=== PATIENT | male | born 1995 | race Caucasian/White ===

== ENCOUNTER 2023-05-04 10:46 | Emergency (ER) | payer BC, SELFPAY ==
[2023-05-04 10:49] VITALS: BP 152/100; PULSE 99; RESP 18; TEMP 36.7; O2SAT 100
[2023-05-04 11:26] LABS: Basophils Percent Auto 0.1 % (0.2-1.2); Eosinophils Absolute Auto 0.1 K/mm3 (0-0.3); Eosinophils Percent Auto 1.6 % (0-4.4); Hematocrit 47.4 % (42.0-52.0); Hemoglobin 17.1 g/dL (14.0-18.0); Immature Granulocyte Absolute 0.02 K/mm3 (0.00-0.031); Immature Granulocyte Percent A 0.3 % (0-0.5); Lymphocytes Absolute Auto 2.46 K/mm3 (0.9-3.2); Lymphocytes Percent Auto 34.8 % (18.3-44.2); Mean Corpuscular HGB Conc 36.1 g/dl (32-36); Mean Corpuscular Hemoglobin 33.1 pg (26-34); Mean Corpuscular Volume 91.9 fl (80-100); Mean Platelet Volume 8.6 fl (7.4-10.4); Monocytes Absolute Auto 0.4 K/mm3 (0.1-0.6); Neutrophils Absolute Auto 4.1 K/mm3 (1.3-6.7); Neutrophils Percent Auto 58.2 % (45.5-73.1); Platelet Count Result 256 k/mm3 (150-375); Red Blood Count 5.16 M/mm3 (4.6-6.20); White Blood Count 7.1 K/mm3 (4.5-10.0)
[2023-05-04 11:30] LABS: Appearance Urine Clear (Clear); Bacteria Urine None Seen /hpf; Bilirubin Urine Negative (Negative); Blood Urine Negative (Negative); Color Urine Yellow (Yellow); Glucose Urine UA Negative (Negative); Ketones Urine Trace mg/dL (Negative); Leukocyte Esterase Ur Negative LEU/UL (Negative); Nitrate Urine Negative (Negative); Non Pathogenic Casts 0-2; Protein Urine 2+ mg/dL (Negative); RBC Urine 0-2 /hpf (0-2); Specific Grav Ur 1.024 (1.001-1.035); Squamous Epithelial Cell Urine None seen /hpf (Few); WBC Urine 0-5 /hpf; pH Urine 7.5 (5.0-9.0)
[2023-05-04 11:36] LABS: Add Urine Microscopic? YES
[2023-05-04 11:37] LABS: Ethanol 142 mg/dL (<10)
[2023-05-04 11:39] LABS: Alanine Aminotransferase 72 U/L (6-50); Albumin Level 4.7 g/dL (3.5-5.1); Alkaline Phosphatase 92 U/L (38-126); Anion Gap 10 mmol/L (8-16); Aspartate Amino Transferase 84 U/L (17-59); Bilirubin,Total 0.7 mg/dL (0.2-1.3); Blood Urea Nitrogen 11 mg/dL (9-20); Calcium 9.6 mg/dL (8.4-10.2); Carbon Dioxide 25 mmol/L (22-30); Chloride 104 mmol/L (98-107); Estimated CRCL calculation 77 ml/min; Estimated Glomerular Filt Rate > 60; Glucose 110 mg/dL (65-110); Sodium 139 mmol/L (137-145)
[2023-05-04 11:44] LABS: Amphetamine Screen Urine Negative (Negative); Barbiturate Screen Urine Negative (Negative); Benzodiazepines Screen Urine Negative (Negative); Cannabinoid Screen Urine Negative (Negative); Cocaine Screen Urine Negative (Negative); Methadone Screen Urine Negative (Negative); Opiate Screen Urine Negative (Negative); Phencyclidine Screen Urine Negative (Negative)
[2023-05-04 12:18] LABS: SARS-CoV-2 RNA PCR Negative (Negative)
[2023-05-04 14:22] LABS: Ethanol 91 mg/dL (<10)
--- NOTE | 2023-05-04 14:39 | ED.PSYCH ---
HPI - Psych General Chief Complaint: Psychiatric Symptoms Stated Complaint: depression Time Seen by Provider: 05/04/23 11:04 Source: patient Mode of arrival: EMS Limitations: no limitations History of Present Illness HPI Narrative: Patient is a 28-year-old male who presents the ED via EMS with report of depression with suicidal ideation. Patient reports he was in his head last night and was having too many thoughts. He notes he was drinking and began having thoughts of wanting things to end, not wanting to be in the world any more, not wanting to go on any further. He did not have any plan or thoughts of how he would attempt suicide. He did not attempt anything. Did not ingest anything aside from alcohol. He drove himself to a truck stop and slept overnight. He reports his soon to be ex- filed a missing person report on him and he was brought here by EMS. Patient does not currently feel suicidal. Denies any thoughts currently. Denies any homicidal ideation. Denies previous history of depression or anxiety, does not currently see a psychiatrist, not currently on psychiatric medications. He is scheduled to see someone in beginning of May. Patient is currently in the process of a divorce. He also reports he lost his daughter 2 years ago. Related Data Allergies Allergy/AdvReac Type Severity Reaction Status Date / Time erythromycin base Allergy Unknown Hives Verified 05/04/23 10:56 minocycline Allergy Unknown Hives Verified 05/04/23 10:56 ERYTHROMYCIN Allergy Unknown Hives Uncoded 05/04/23 10:56 Review of Systems Review of Systems: CONSTITUTIONAL: Denies fever, chills, or sweats. NEUROLOGIC: Denies headache, dizziness, numbness, or weakness. PSYCHIATRIC: See HPI. All systems reviewed & are unremarkable except as noted in HPI and below [facility] Family History Family History Mother Hypertension Social History Social History Smoking status: Heavy tobacco smoker Alcohol intake: current Substance use type: does not use Exam Narrative: GENERAL: Well appearing, obese with BMI of 31.4, non-toxic, in no acute distress. HEAD: Normocephalic, atraumatic. RESPIRATORY: Airway patent, respirations nonlabored. Clear to auscultation bilaterally, no rales, rhonchi, wheezing. CARDIOVASCULAR: Regular rate and rhythm without murmurs, rubs, or gallops. MUSCULOSKELETAL: Moves all extremities. No gross deformities. SKIN: Warm, dry, normal color. NEURO: A&O X3. Speech clear. Cranial nerves II-XII grossly intact. Steady gait. No ataxic movements. PSYCHIATRIC: Depressed mood, though pleasant. Normal interaction. Course Vital Signs Vital signs: Vital Signs Temperature 98.0 F 05/04/23 10:49 Pulse Rate 99 05/04/23 10:49 Respiratory Rate 18 05/04/23 10:49 Blood Pressure 152/100 H 05/04/23 10:49 Pulse Oximetry 100 05/04/23 10:49 Oxygen Delivery Room Air 05/04/23 10:49 Temperature 98.0 F 05/04/23 10:49 Pulse Rate 99 05/04/23 10:49 Respiratory Rate 18 05/04/23 10:49 Blood Pressure 152/100 H 05/04/23 10:49 Pulse Oximetry 100 05/04/23 10:49 Oxygen Delivery Room Air 05/04/23 10:49 MDM - Psych MDM Narrative Medical decision making narrative: Patient presented to ED with depression, suicidal ideation last night while drinking ETOH. No further suicidal ideation currently. Brought to ED by PD/EMS. VSS upon arrival. Patient pleasant, good insight into how he was feeling. Multiple life stressors. ED psych workup initiated. ETOH 142 upon arrival. Will wait for ETOH clearance before contacting crisis. Remainder of laboratory studies unremarkable. 1640 - ETOH cleared. Patient medically cleared. Crisis contacted. Will be coming to evaluate. Crisis evaluated patient and determine him to meet criteria for safety planning and discharge home. I do agree wit
[2023-05-04 16:36] LABS: Ethanol 29 mg/dL (<10)
== END 2023-05-04 18:23 | disposition home or self-care (01) ==
PROVIDERS: General Practice; Emergency Provider Physician Assistant
DX: R45.851 Suicidal ideations (principal); F32.A Depression, unspecified; Z20.822 Contact with and (suspected) exposure to COVID-19
CPT/HCPCS: 36415; 80053; 80307; 81001; 84443; 85025; 87635; 99284